=== PATIENT | female | born 1945 | race Caucasian/White ===

== ENCOUNTER → 2018-06-18 08:36 | Outpatient (CLI) | payer MEDICARE, OTHER ==
[2018-06-20 12:21] LABS: LUPUS - INTERPRETATION Comment: (()); LUPUS - dRVVT 35.2 sec (0.0-47.0); PTT-LA 33.6 sec (0.0-51.9)
== END | disposition home or self-care (01) ==
LOC: D.RT 08:36
PROVIDERS: Internal Medicine Pulmonary Disease
DX: J44.9 Chronic obstructive pulmonary disease, unspecified (principal); Z86.718 Personal history of other venous thrombosis and embolism

== ENCOUNTER → 2019-06-26 13:52 | Outpatient (CLI) | payer MEDICARE, OTHER | END | disposition home or self-care (01) | LOC: D.RAD 06-13 10:00 → D.RT 06-13 10:00 → D.RAD 06-13 10:45 | PROVIDERS: ATTEND Internal Medicine Pulmonary Disease | DX: J44.9 Chronic obstructive pulmonary disease, unspecified (principal) ==

== ENCOUNTER → 2020-02-05 09:16 | Outpatient (CLI) | payer MEDICARE, OTHER | END | disposition home or self-care (01) | LOC: D.RAD 09:16 | PROVIDERS: ATTEND Internal Medicine Pulmonary Disease | DX: J42 Unspecified chronic bronchitis (principal); J44.9 Chronic obstructive pulmonary disease, unspecified ==